=== PATIENT | female | born 1955 | race Caucasian/White ===

== ENCOUNTER 2017-02-10 10:58 | Emergency (ER) | payer SELFPAY ==
[~2017-02-10] VITALS: Ht 165.1 cm; Wt 54.7 kg
[2017-02-10 11:07] VITALS: BP 207/124; PULSE 90; RESP 16; TEMP 97.7; O2SAT 97
[2017-02-10 11:30] VITALS: BP 215/92
[2017-02-10] MEDS ORDERED: cloNIDine HCL 0.2 MG TAB PO ONE (11:30)
--- NOTE | 2017-02-10 11:31 | PD ---
HPI Chief Complaint: Pain: Acute or Chronic Time Seen by Provider: 11:20 Travel History International Travel<30 days: No Contact w/Intl Traveler<30days: No Traveled to known affect area: No History of Present Illness HPI This patient complains of pain in the left calf. Spent bothering her for 2 weeks. She has discomfort only during the night. At this time it feels fine. There is no injury. It's never been red or swollen or warm. No history of DVT. She never goes to a doctor in the last 30 years. Her blood pressure is 231/91 PFSH Past Medical History Medical History: Denies Significant Hx Hx Anticoagulant Therapy: Yes (ASA 162MG. DAILY) Diabetes: No Diminished Hearing: No Tetanus Vaccination: > 5 Years Influenza Vaccination: No ?: Not Menopausal: Yes Past Surgical History Surgical History: No Previous Surgery Social History Alcohol Use: Yes (daily) Tobacco Use: Yes (1-1.5 ppd) Substance Use: No Allergies-Medications (Allergen,Severity, Reaction): Coded Allergies: caffeine (Verified Allergy, Unknown, 02/10/17) No Known Allergies (Unverified , 02/10/17) Reported Meds & Prescriptions Reported Meds & Active Scripts Active No Active Prescriptions or Reported Medications Review of Systems General / Constitutional: No: Fever Eyes: No: Visual changes HENT: No: Headaches Cardiovascular: No: Chest Pain or Discomfort Respiratory: No: Shortness of Breath Gastrointestinal: No: Abdominal Pain Genitourinary: No: Dysuria Musculoskeletal: Positive: Pain Skin: No Rash Neurologic: No: Weakness Psychiatric: No: Depression Endocrine: No: Polydipsia Hematologic/Lymphatic: No: Easy Bruising Physical Exam Narrative GENERAL: Well-nourished, well-developed patient in no apparent distress. SKIN: Focused skin assessment reveals no rash and nodules. Skin is Warm and dry. HEAD: Atraumatic. Normocephalic. EYES: Pupils equal and round. No scleral icterus. No injection or drainage. ENT: No nasal bleeding or discharge. Mucous membranes pink and moist. NECK: Trachea midline. No JVD. CARDIOVASCULAR: Regular rate and rhythm. No murmur appreciated. RESPIRATORY: No accessory muscle use. Clear to auscultation. Breath sounds equal bilaterally. GASTROINTESTINAL: Abdomen soft, non-tender, nondistended. Hepatic and splenic margins not palpable. MUSCULOSKELETAL: No obvious deformities. No clubbing. No cyanosis. No edema. NEUROLOGICAL: Awake and alert. No obvious cranial nerve deficits. Motor grossly within normal limits. Normal speech. PSYCHIATRIC: Appropriate mood and affect; insight and judgment normal. Data Data Last Documented VS Vital Signs Date Time Temp Pulse Resp B/P (MAP) Pulse Ox O2 Delivery O2 Flow Rate FiO2 02/10/17 13:16 75 18 156/71 (99) 95 Room Air 02/10/17 11:07 97.7 Orders Orders Clonidine (Catapres) (02/10/17 11:30) Nifedipine (Procardia) (02/10/17 12:30) [facility] Medical Decision Making Medical Screen Exam Complete: Yes Emergency Medical Condition: Yes Medical Record Reviewed: Yes Differential Diagnosis Restless leg syndrome, muscle strain, DVT Narrative Course I have reviewed the patient's electronic medical record. Patient has accelerated hypertension. I gave her dose of clonidine and will reassess She is advised to check and recorded daily and follow up with primary care as soon as she can arrange She should quit smoking and limit her caffeine Regarding her leg, she is asymptomatic in the exam is normal. There is no clinical suspicion of DVT. She has only nocturnal pain. Possibly restless leg syndrome variant. Repeat blood pressure is 154 systolic. I had to give her a dose of Procardia as well. Given her extreme pressure in multiple meds to lower it down I have prescribed her a daily chlorthalidone for one month while she works on getting a physician Diagnosis Primary Impression: Left leg pain Additional Impression: Accelerated hypertension Additional Instructions: Check and record blood pressure daily Quit smoking and limit caffeine The patient was advised to follow up with their physician and return if they worsen. Med/Other Pt SpecificInfo: Prescription(s) given Scripts Chlorthalidone (Chlorthalidone) 25 Mg Tab 12.5 MG PO DAILY for 30 Days, #15 TAB 0 Refills Prov: Mikhail Ríos MD 02/10/17 Disposition: 01 DISCHARGE HOME Condition: Stable Mikhail Ríos MD Feb 10, 2017 11:31
[2017-02-10 12:15] VITALS: BP 214/94; PULSE 80; RESP 18; O2SAT 95
[2017-02-10] MEDS ORDERED: NIFEdipine 20 MG CAP PO ONE (12:30)
[2017-02-10 13:16] VITALS: BP 156/71; PULSE 75; RESP 18; O2SAT 95
[2017-02-10] MEDS ORDERED: CHLO25TA2 PO (13:21)
== END 2017-02-10 13:38 | disposition home or self-care (01) ==
LOC: PHED 10:58
DX: M79.662 Pain in left lower leg (principal); I10 Essential (primary) hypertension; F17.200 Nicotine dependence, unspecified, uncomplicated; Z79.82 Long term (current) use of aspirin
CPT/HCPCS: 99283